=== PATIENT | female | born 1970 | race Caucasian/White ===

== ENCOUNTER 2024-08-29 19:21 | Emergency (ER) | payer OTHER ==
[2024-08-29 19:42] VITALS: BP 150/85; PULSE 79; RESP 16; TEMP 97.9; BMI 23.7
== END 2024-08-29 21:11 | disposition home or self-care (01) ==
LOC: FER 19:21
DX: S63.501A Unspecified sprain of right wrist, initial encounter (principal); V18.0XXA Pedal cycle driver injured in noncollision transport accident in nontraffic accident, initial encounter; Y92.410 Unspecified street and highway as the place of occurrence of the external cause
CPT/HCPCS: 73090-TC-RT-FY; 73110-TC-RT-FY; 73130-TC-RT-FY; 99283-25